=== PATIENT | male | born 1955 | race American Indian/Alaskan Native ===

== ENCOUNTER 2020-12-24 11:20 | Emergency (ER) | payer MEDICARE, OTHER ==
--- NOTE | 2020-12-24 11:33 | Event Note ---
ED Screening Note Date of service: 12/24/20 Time: 11:32 ED Screening Note: Patient complains of chest pain x1 month This initial assessment/diagnostic orders/clinical plan/treatment(s) is/are subject to change based on patients health status, clinical progression and re- assessment by fellow clinical providers in the ED. Further treatment and workup at subsequent clinical providers discretion. Patient/guardian urged not to elope from the ED as their condition may be serious if not clinically assessed and managed. Initial orders include: Labs EKG Chest x-ray
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
--- NOTE | 2020-12-24 12:17 | Emergency Department Report ---
ED Chest Pain HPI - General Chief Complaint: Chest Pain Stated Complaint: CHEST PAIN X 1 MONTH Time Seen by Provider: 12/24/20 11:31 Source: patient Mode of arrival: Ambulatory Limitations: No Limitations - History of Present Illness Initial Comments: 65-year-old male presents to ED with complaint of right-sided chest pain. Patient states he has been experiencing this pain daily for the last month. Patient states pain is located in the right anterior chest and radiates down to the right upper quadrant of his abdomen. Patient denies any fever, cough, nausea, vomiting, diarrhea. His pain is worse with movement of torso. He reports some occasional shortness of breath with exertion. Patient denies any leg pain or swelling. He denies any known contact with anyone who was tested positive for COVID-19. He has not yet received his Covid vaccination. MD Complaint: chest pain -: month(s) (1) Onset: during rest Pain Location: right chest Pain Radiation: abdomen (RUQ) Severity: moderate Quality: aching Consistency: intermittent Improves With: nothing Worsens With: movement re: dyspnea. denies: nausea, vomting, diaphoresis Other Symptoms: denies: cough, fever, leg swelling - Related Data Previous Rx's Medication Instructions Recorded Last Taken Type Naproxen [Naprosyn] 500 mg PO BID #20 tablet 12/24/20 Unknown Rx Allergies Allergy/AdvReac Type Severity Reaction Status Date / Time No Known Allergies Allergy Verified 12/24/20 11:21 Heart Score - HEART Score History: Slightly suspicious EKG: Normal Age: > 65 Risk factors: 1-2 risk factors Troponin: < normal limit HEART Score: 3 ED Review of Systems ROS: Stated complaint: CHEST PAIN X 1 MONTH Other details as noted in HPI Comment: All other systems reviewed and negative Constitutional: denies: chills, fever Respiratory: SOB with exertion. denies: cough Cardiovascular: chest pain Gastrointestinal: denies: abdominal pain, nausea, vomiting, diarrhea Musculoskeletal: other (Denies leg pain or swelling) ED Past Medical Hx - Past Medical History Hx Hypertension: Yes Hx Congestive Heart Failure: No Hx Diabetes: No Hx Asthma: No Hx COPD: No - Surgical History Additional Surgical History: PROSTRATE SURGERY - Social History Smoking Status: Never Smoker Substance Use Type: None - Medications Home Medications: Home Medications Medication Instructions Recorded Confirmed Last Taken Type Naproxen [Naprosyn] 500 mg PO BID #20 tablet 12/24/20 Unknown Rx ED Physical Exam - General Limitations: No Limitations General appearance: alert, in no apparent distress - Head Head exam: Present: atraumatic, normocephalic - Eye Eye exam: Present: normal appearance, EOMI - ENT ENT exam: Present: mucous membranes moist - Neck Neck exam: Present: normal inspection - Respiratory Respiratory exam: Present: normal lung sounds bilaterally. Absent: respiratory distress - Cardiovascular Cardiovascular Exam: Present: regular rate, normal rhythm - GI/Abdominal GI/Abdominal exam: Present: soft, tenderness (mild RUQ tenderness). Absent: di stended - Extremities Exam Extremities exam: Present: normal inspection - Back Exam Back exam: Present: normal inspection. Absent: tenderness - Neurological Exam Neurological exam: Present: alert, oriented X3 - Psychiatric Psychiatric exam: Present: normal affect, normal mood - Skin Skin exam: Present: warm, dry, intact, normal color ED Course Vital Signs 12/24/20 12/24/20 12/24/20 11:28 12:31 12:45 Temperature 98.3 F Pulse Rate 96 H 88 82 Respiratory 20 16 11 L Rate Blood Pressure 163/78 119/70 119/70 O2 Sat by Pulse 96 99 99 Oximetry 12/24/20 12/24/20 12/24/20 13:46 14:01 14:15 Temperature Pulse Rate 84 81 76 Respiratory 15 12 11 L Rate Blood Pressure 120/79 119/70 120/79 O2 Sat by Pulse 97 99 98 Oximetry 12/24/20 12/24/20 12/24/20 14:31 14:45 15:01 Temperature Pulse Rate 79 81 77 Respiratory 14 14 12 Rate Blood Pressure 120/79 120/79 120/79 O2 Sat by Pulse 99 99 99 Oximetry 12/24/20 12/24/20 12/24/20 15:15 15:31 15:45 Temperature Pulse Rate 89 79 83 Respiratory 21 19 10 L Rate Blood Pressure 124/72 124/72 124/72 O2 Sat by Pulse 98 96 99 Oximetry 12/24/20 16:01 Temperature Pulse Rate 78 Respiratory 10 L Rate Blood Pressure 124/72 O2 Sat by Pulse 99 Oximetry MARY KAY score - Mary Kay Score Age > 65: (0) No Aspirin use within the Past 7 Days: (0) No 3 or more CAD Risk Factors: (1) Yes 2 or more Angina events in past 24 hrs: (0) No Known CAD with more than 50% Stenosis: (0) No Elevated Cardiac Markers: (0) No ST Deviation Greater than 0.5mm: (0) No MARY KAY Score: 1 ED Medical Decision Making - Lab Data Result diagrams: 12/24/20 11:46 12/24/20 11:46 - EKG Data -: EKG Interpreted by Ks EKG shows normal: sinus rhythm, axis, intervals, QRS complexes, ST-T waves - EKG Data Interpretation: no acute changes, other (occasional PVCs) - Radiology Data Radiology results: report reviewed, image reviewed - Medical Decision Making 65-year-old male presents to ED with right-sided abdominal pain x1 month. EKG shows no ST changes, troponin negative x2. Chest x-ray is normal. Vital signs are normal. Patient has some right upper quadrant tenderness on exam. Ultrasound is unremarkable. Pain is reproducible with palpation and with movement of the torso. This seems musculoskeletal in nature. Patient will be discharged home with prescription for anti-inflammatory meds. Patient follow-up advised, return precautions given. - Differential Diagnosis Chest wall pain, pneumonia, gallstones Critical care attestation.: If time is entered above; I have spent that time in minutes in the direct care of this critically ill patient, excluding procedure time. ED Disposition Clinical Impression: Chest pain, Hepatic steatosis Disposition: - TO HOME OR SELFCARE Is pt being admited?: No Condition: Stable Instructions: Nonspecific Chest Pain, Adult Prescriptions: Naproxen [Naprosyn] 500 mg PO BID #20 tablet Referrals: JENNIFER POTTS MD [Primary Care Provider] - 3-5 Days Time of Disposition: 15:34
[2020-12-24 12:37] LABS: Basophils # (Auto) 0.1 K/mm3 (0.0-0.1); Eosinophils # (Auto) 0.1 K/mm3 (0.0-0.4); Eosinophils % (Auto) 1.1 % (0.0-4.3); Hematocrit 37.5 % (35.5-45.6); Hemoglobin 12.8 gm/dl (11.8-15.2); Lymphocytes # (Auto) 0.8 K/mm3 (1.2-5.4); Mean Corpuscular HGB Conc 34 % (32-34); Mean Corpuscular Volume 95 fl (84-94); Monocytes # (Auto) 0.4 K/mm3 (0.0-0.8); Monocytes % (Auto) 5.9 % (0.0-7.3); Platelet Count 266 K/mm3 (140-440); Red Blood Count 3.95 M/mm3 (3.65-5.03); Red Cell Distribution Width 13.9 % (13.2-15.2)
[2020-12-24 12:49] LABS: Alanine Aminotransferase 18 units/L (7-56); Albumin 4.3 g/dL (3.9-5); BUN/Creatinine Ratio 10; Blood Urea Nitrogen 13 mg/dL (9-20); Calcium 9.1 mg/dL (8.4-10.2); Hemolysis Index 4
--- NOTE | 2020-12-24 14:46 | Ultrasound Report ---
LIMITED RUQ ABDOMINAL ULTRASOUND INDICATION: RUQ pain. COMPARISON: No relevant prior imaging study available. FINDINGS: Pancreas: Visualized portions show no significant abnormality. Abdominal Aorta: No significant abnormality. IVC: No significant abnormality. Liver: The liver measures 19 cm in length. Diffusely increased hepatic echogenicity which typically i ndicates hepatic steatosis.. Normal hepatopedal blood flow in the main portal vein. Gallbladder: Tiny 5 mm polyp. Bile ducts: No significant abnormality. Common bile duct measures 6 mm. Right kidney: No significant abnormality visualized.. Free fluid: None. Additional Findings: None. IMPRESSION: 1. Hepatomegaly with findings suggesting hepatic steatosis. 2. Tiny gallbladder polyp that does not require dedicated follow-up. Signer Name: Jed Dejesus MD Signed: 12/24/2020 2:41 PM Workstation Name: [id number]
[2020-12-24 16:59] VITALS: BP 124/72
--- NOTE | 2020-12-25 11:19 | Electrocardiograph Report ---
[facility] Test Date: 2020-12-24 Test Time: 11:40:03 Pat Name: ALVA VELASQUEZ Department: Room: Gender: M Class B Driver: : [id number] Requested By: TIFFANIE VALDEZ Order Number: [id number] Reading MD: Gianni Contreras Measurements Intervals [place] Rate: 94 P: 55 [place]: 165 QRS: -6 QRSD: 84 T: 80 QT: 373 QTc: 468 Interpretive Statements Sinus rhythm Multiple ventricular premature complexes Low voltage, extremity leads No previous ECG available for comparison Electronically Signed On 12-25-2020 8:19:11 PDT by Gianni Contreras
== END 2020-12-24 16:15 | disposition home or self-care (01) ==
LOC: ED 11:20
DX: R07.89 Other chest pain (principal); E88.89 Other specified metabolic disorders; K76.9 Liver disease, unspecified; I10 Essential (primary) hypertension; Z79.899 Other long term (current) drug therapy
CPT/HCPCS: 36415; 71046; 76705; 80053; 83690; 84484; 85025; 93005; 99283